=== PATIENT | male | born 2000 | race Caucasian/White ===

== ENCOUNTER 2021-11-09 12:49 | Emergency (ER) | payer MEDICAID ==
[~2021-11-09] VITALS: Ht 170.2 cm; Wt 63.0 kg
[2021-11-09 12:53] VITALS: BP 128/59
[2021-11-09] MEDS ORDERED: LIDOCAINE HCL/PF 1% 10 MG/ML 5ML VIAL INFIL ONE (13:00)
[2021-11-09] MEDS ORDERED: TETANUS, DIPHTHERIA, PERTUSSIS VAC/PF 0.5ML (>10YR OLD) IM ONE (13:00)
[2021-11-09] MEDS ORDERED: BACITRACIN ZINC OINT UDPKT TOP ONE (13:00)
[2021-11-09] MEDS ORDERED: LIDOCAINE HCL 1% 20ML VIAL (Pyxis) INJ INFIL NR (13:15)
[2021-11-09] MEDS ORDERED: AMOX-424 MT (14:36)
== END 2021-11-09 14:54 | disposition home or self-care (01) ==
LOC: ER 12:49
DX: S61.210A Laceration without foreign body of right index finger without damage to nail, initial encounter (principal); W25.XXXA Contact with sharp glass, initial encounter; Y93.89 Activity, other specified; Y92.018 Other place in single-family (private) house as the place of occurrence of the external cause
CPT/HCPCS: 12001; 73130; 73140; 90715; 99284; J3490